=== PATIENT | female | born 1960 | race Caucasian/White ===

== ENCOUNTER 2018-06-02 07:00 | Day surgery (SDC) | payer OTHER ==
[~2018-06-02] VITALS: Ht 160 cm; Wt 85.3 kg
[~2018-06-02 07:00] MED LIST: COZAAR25 MG PO; JANUMET XR 50-1 EAC1 PO; TOPROL XL100 M1 PO
== END 2018-06-02 09:00 | disposition home or self-care (01) ==
LOC: CIR.AMB 07:00 → SURH 07:00 → O/R 07:00 → SURH 07:02 → O/R 07:02 → CIR.AMB 09:00 → EDSTATUS 09:00 → SURH 09:00 → O/R 14:05 → SURG 14:05 → O/R 06-03 13:17
DX: D12.8 Benign neoplasm of rectum (principal); K62.1 Rectal polyp; I10 Essential (primary) hypertension; E11.9 Type 2 diabetes mellitus without complications